=== PATIENT | male | born 1945 | race African-American/Black ===

== ENCOUNTER 2017-02-09 17:13 | Emergency (ER) | payer BC ==
--- NOTE | ~2017-02-09 | EKG ---
PATIENT: DONNY HARRELL UNIT #: [id number] Ventricular Rate: 63 BPM Atrial Rate: 63 BPM P-R Interval: 166 ms QRS Duration: 86 ms Q-T Interval: 398 ms QTC Calculation(Bezet): 407 ms P [place]: 7 degrees Calculated R Astatula: 26 degrees Diagnosis Line: Sinus rhythm with Premature atrial complexes Diagnosis Line: Nonspecific T wave abnormality Diagnosis Line: Abnormal ECG Diagnosis Line: No previous ECGs available Diagnosis Line: Confirmed by DEVIN MEMBRENO MD ([id number]) on Diagnosis Line: 02/11/2017 7:56:47 AM INTERPRETING MD: TEMI HOGUE
[~2017-02-09 17:13] MED LIST: ASPIR-TRIN325 MG PO; CRESTOR PO; ENFOLAST TABLE1 EACH PO; HYZAAR 100-25 T1 TA1; HYZAAR 100-25 T1 TAB PO; VIT E PO
[2017-02-09 17:49] LABS: BASOPHIL# 0.1 X10e3 (0-0.3); BASOPHIL% 0.8 % (0-2.5); EOSINOPHIL# 0.2 X10e3 (0-0.7); EOSINOPHIL% 2.2 % (0.0-7.0); HEMATOCRIT 44.5 % (38.0-50.0); HEMOGLOBIN 14.9 gm/dL (13.0-16.0); LYMPHOCYTE# 1.6 X10e3 (1.0-3.5); LYMPHOCYTE% 22.7 % (17.0-45.0); MEAN CELL VOLUME 85.5 FL (83-96); MEAN CORPUSCULAR HEMOGLOBIN 28.6 PG (28-34); MEAN CORPUSCULAR HGB CONC 33.5 g/dL (30-36); MONOCYTE# 0.9 X10e3 (0-1.0); MONOCYTE% 11.7 % (3.0-12.0); NEUTROPHIL# 4.6 X10e3 (1.5-7.1); NEUTROPHIL% 62.6 % (40-75); PLATELET COUNT 187 X10e3 (140-420); RED CELL DISTRIBUTION WIDTH 14.7 % (11.0-15.5); WHITE BLOOD COUNT 7.3 X10e3 (4.0-10.5)
[2017-02-09 17:53] LABS: DIFF IND NO
[2017-02-09 18:10] LABS: ALBUMIN SERUM 4.1 g/dL (3.5-5.0); BILIRUBIN, DIRECT 0.1 mg/dL (0.0-0.2); BILIRUBIN,INDIRECT 0.8 mg/dL (0.0-0.9); BILIRUBIN,TOTAL 0.9 mg/dL (0.2-2.0); BUN/CREATININE RATIO 13.84; CALCIUM SERUM 9.4 mg/dL (8.4-10.2); CREATININE SERUM 1.3 mg/dL (0.6-1.4); GLOM FILT RATE Estimated 63.2 mL/min (>60); POTASSIUM 3.7 mmol/L (3.5-5.1); PROTEIN TOTAL SERUM 8.1 g/dL (6.0-8.3)
== END 2017-02-09 21:30 | disposition left against medical advice (07) ==
LOC: CED 17:13
PROVIDERS: Emergency Medicine
DX: Z53.21 Procedure and treatment not carried out due to patient leaving prior to being seen by health care provider (principal)
CPT/HCPCS: 80048; 80076; 85025; 93005

== ENCOUNTER → 2017-02-25 | Outpatient (CLI) | payer BC ==
--- NOTE | ~2017-02-25 | CT17 ---
[facility] A Service of [facility] & [facility] RADIOLOGY TEXT RESULTS PATIENT: DONNY HARRELL [facility] 44 UNIT #: [id number] AGE: [address]: Cindy Willingham MD SEX: M ORDER DR: [id number] [facility] [address] [place], [place] [address] [id number] O MR#: [id number] Acc #: [id number] NAME: DONNY HARRELL : 1945 SEX: M STUDY DATE/TIME: 02/25/2017 13:05 UNIT: [facility] ROOM: STUDY DESCRIPTION: CT Angio Head Attending Physician: Cindy Willingham M.D. Referring Physician: Cindy Willingham M.D. Ordering Physician: Cindy Willingham M.D. Primary Care Physician: Cindy Willingham M.D. MEDICAL IMAGING REPORT This report is preliminary unless electronic signature is present EXAM CT angiogram of the head and neck with contrast, 02/25/2017. COMPARISON CT head without contrast, 02/25/2017 HISTORY Dizziness since 02/07/2017. Sinus pressure. TECHNIQUE CT angiogram of the head and neck was obtained with IV contrast in the axial plane, followed by reformats. CODE reformats of the major neck arteries involving the carotid and vertebral arteries were performed. Reformats of the table [place] in all 3 planes, along with 3-D tumbling MIP images and surface-rendered images within bilateral MCA snapshots at a separate workstation, as per the protocol. This CT exam was performed with one or more of the following radiation dose reduction techniques: automatic exposure control, adjustment of mA and/or kV according to patient size, and iterative reconstruction. FINDINGS NECK: 2-vessel aortic arch is seen. There is common origin of the left common carotid artery with the innominate artery. Bilateral common carotid arteries are unremarkable, except for plaques at the bifurcation, worse on the left when compared to the right. No significant stenosis is seen. The plaques extend into bilateral internal carotid artery bulbs, worse on the left when compared to the right. No significant measurable stenosis is seen in the left internal carotid artery origin, per NASCET criteria. Right internal carotid artery demonstrates mild plaque without distal flow limitation. Bilateral external carotid arteries are unremarkable. Left vertebral artery is slightly prominent, when compared to the right. Bilateral vertebral arteries demonstrate expected course, caliber, and STS. [facility] A Service of [facility] RADIOLOGY TEXT RESULTS PATIENT: DONNY HARRELL LOCATION: [facility] : 43 UNIT #: [id number] AGE: [address]: Cindy Willingham MD SEX: M ORDER DR: flow. HEAD: Bilateral intracranial internal carotid arteries demonstrate mild atherosclerotic plaque in cavernous and supraclinoid left ICA. Bilateral anterior cerebral arteries and middle cerebral arteries are within normal limits. Right posterior communicating artery is seen. Tiny left P-COM and A-COM are present. Small 1-2 mm outpouching is suspected along the posterior and inferior aspects of the supraclinoid left ICA at the origin of the left P-COM suspicious for tiny infundibulum. Basilar artery and bilateral posterior cerebral arteries are within normal limits. There is mild decrease in caliber of the right vertebral artery as it extends distally towards the vertebrobasilar junction. No associated plaques are seen. It is probably a congenital appearance and seen after the take-off of the right PICA. Dural venous sinuses are patent without filling defects to suggest thrombosis. EXTRAVASCULAR SOFT TISSUES: Degenerative changes are noted at multiple levels of the cervical spine involving the discs and the facet joint with varying degrees of neural foraminal narrowing. No significant lymphadenopathy is seen. S-shaped nasal septal deviation is seen. Paranasal sinuses and mastoid air cells are well-aerated. No significant abnormality is noted in the visualized various spaces of the neck. Intracranially, there is no enhancing mass, hydrocephalus, or midline shift. IMPRESSION 1. No hemodynamically significant flow-limiting stenosis in bilateral internal carotid artery bulbs, per NASCET criteria. 2. No dissection, aneurysm, or arteriovenous malformation. At the origin of the left P-COM, there appears to be a tiny 1-2 mm outpouching arising from the posterior and inferior aspects of the supraclinoid left ICA. It is probably a small infundibulum with a left P-COM arising from its distal tip, rather than small aneurysm. Dictated by... De Best M.D. THIS IS AN ELECTRONICALLY VERIFIED REPORT De Best M.D. at 03/03/2017 1:10 PM CPR/tino TD: 02/28/2017 16:47 JOB #: [id number] MEDICAL IMAGING REPORT Page 1 of 1 COPY
--- NOTE | ~2017-02-25 | CT71 ---
[facility] A Service of [facility] & [facility] RADIOLOGY TEXT RESULTS PATIENT: DONNY HARRELL [facility] : 43 UNIT #: [id number] AGE: [address]: Cindy Willingham MD SEX: M ORDER DR: [id number] [facility] [address] [place], [place] [address] [id number] O MR#: [id number] Acc #: [id number] NAME: DONNY HARRELL : 1945 SEX: M STUDY DATE/TIME: 02/25/2017 12:50 UNIT: [facility] ROOM: STUDY DESCRIPTION: CT Head Wo Contrast Attending Physician: Cindy Willingham M.D. Referring Physician: Cindy Willingham M.D. Ordering Physician: Cindy Willingham M.D. Primary Care Physician: Cindy Willingham M.D. MEDICAL IMAGING REPORT This report is preliminary unless electronic signature is present EXAM CT of the head without contrast. INDICATIONS Sinus pressure and dizziness since February 07, 2017. TECHNIQUE Axial CT images were obtained from vertex of the skull through skull base. No intravenous contrast was material. This CT exam was performed with one or more of the following radiation dose reduction techniques: automatic exposure control, adjustment of mA and/or kV according to patient size, and iterative reconstruction. FINDINGS No acute cranial hemorrhage is identified. Brain parenchyma is normal in attenuation with no focal areas of decreased attenuation seen. There is no midline shift or mass effect. There is atherosclerotic involvement of the cavernous carotid arteries. There is partial opacification of the mastoid air cells. No focal aggressive osseous abnormalities are seen. IMPRESSION 1. No acute intracranial process identified. Specifically, there is no evidence of acute hemorrhage, mass lesion or acute infarct. 2. Partial opacification of the right mastoid air cells. Remainder of visualized paranasal sinuses appear clear. Dictated by... Deisy Flowers M.D. THIS IS AN ELECTRONICALLY VERIFIED REPORT Deisy Flowers M.D. at 02/27/2017 1:10 PM AFF/jt [facility] A Service of [facility] & [facility] RADIOLOGY TEXT RESULTS PATIENT: DONNY HARRELL LOCATION: [facility] : 43 UNIT #: [id number] AGE: [address]: Cindy Willingham MD SEX: M ORDER DR: TD: 02/25/2017 21:08 JOB #: [id number] MEDICAL IMAGING REPORT Page 1 of 1 COPY
== END | disposition home or self-care (01) ==
LOC: CCAT 11:50
DX: R42 Dizziness and giddiness (principal); H74.8X1 Other specified disorders of right middle ear and mastoid
CPT/HCPCS: 70450; 70496; 70498; Q9967